=== PATIENT | male | born 1955 | race Caucasian/White ===

== ENCOUNTER 2023-03-26 00:37 | Emergency (ER) | payer BC, SELFPAY ==
[2023-03-26] VITALS (10 sets, daily range): BP systolic 109–147; BP diastolic 66–94; BMI 34.7
--- NOTE | 2023-03-26 01:21 | ED.GENMED ---
History of Present Illness
<JOSE Allen - Last Filed: 03/26/23 01:37>
General
Chief Complaint: Alcohol Problem
Source: patient
Exam Limitations: none
Time Seen by Provider: 03/26/23 00:57
Nursing documentation reviewed up to this point in time: agreed with
Travel History
Have you had any contact with someone who has COVID-19?: Unable to Answer
Do you have any symptoms of coronavirus? Fever > 100 degrees, chills, cough, shortness of breath, sore throat, loss of taste or smell, muscle aches, or headache?: Unable to Answer
History of Present Illness
History of Present Illness:
Pt is a 68 yo male with PMH of CAD, HTN, HLD who presents today via [facility] after being found intoxicated on his lawn by his . Pt states that he and his were celebrating his upcoming trip to [place] so he took her out to dinner. They took an
Uber and drank 'a lot' of wine and bourbon at the restaurant. They took an Uber home and the pt states that he does not think he made it back inside his house. EMS reports that his then found him on the lawn and called 911. Pt denies being in
pain currently, SOB, abdominal pain, nausea, headache. Denies daily alcohol use, states he only drinks alcohol on special occasions. Denies drug or substance use. Pt does not remember falling down on his lawn. He has a small abrasion on his nose and
dirt/debris on his right side but does not appear to have any significant injuries.
Past History
<JOSE Allen - Last Filed: 03/26/23 01:37>
Past History
ED Past Medical History: CAD, HTN and Hypercholesterolemia
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
Social History
Tobacco: Former smoker
Alcohol: None
Personal:
Living: with family
Family History
Family History: Unable to obtain
Review of Systems
<JOSE Allen - Last Filed: 03/26/23 01:37>
Review of Systems
Allergies reviewed?: Yes
Other source history: ambulance crew
All Other Systems: ROS reviewed and negative except as documented in HPI and ROS
Phy Exam
<JOSE Allen - Last Filed: 03/26/23 01:37>
General Physical Exam
General Presentation: no apparent distress
General Skin: dry and cool
General Mental: appears intoxicated
ENT Exam
ENT Exam: neck supple, normocephalic and swallowing well
Eye Exam
Eye Exam: PERRL and conjunctiva normal
Cardiovascular Exam
Cardiovascular Exam: regular rate/rhythm, no edema, no murmur and normal peripheral pulses
Pulmonary Exam
Pulmonary Exam: lungs clear, no respiratory distress, no rales, no crackles, no rhonchi, no wheezing and no cough
Gastrointestinal Exam
Gastrointestinal Exam: normal bowel sounds, non tender, soft and non distended
Neurological Exam
Neurological Exam: appears intoxicated and slurred speech
<Molly Chopra DO - Last Filed: 03/26/23 06:27>
Withdrawal Assessment of Alcohol
Withdrawal Assessment Completed?: Not applicable
Course
<JOSE Allen - Last Filed: 03/26/23 01:37>
Orders/Labs/Results
Orders:
Orders
03/26/23 01:07
CT Head W/o Iv Contrast Urgent
Comment:
Reason For Exam: change in MS, ETOH use, fall
Urine Drug Abuse Screen Urgent
03/26/23 01:08
Cardiac Monitoring- Treatment ONCE
03/26/23 01:09
Electrocardiogram (*1) Urgent
Reason for Study: Syncope
EKG- Treatment ONCE
03/26/23 07:00
Alcohol Urgent
Complete Blood Count/With Diff Urgent
Comprehensive Metabolic Panel Urgent
Vital Signs
Initial and Last Documented VS:
Initial Vital Signs
Temp Pulse Resp Pulse Ox
97.8 F 79 15 97
03/26/23 00:45 03/26/23 00:45 03/26/23 00:45 03/26/23 00:45
Last Documented Vital Signs
Temp Pulse Resp BP Pulse Ox
97.8 F 85 18 130/76 95
03/26/23 00:45 03/26/23 05:30 03/26/23 05:30 03/26/23 05:00 03/26/23 01:00
<Molly Chopra, DO - Last Filed: 03/26/23 06:27>
Orders/Labs/Results
Orders:
Orders
03/26/23 01:07
CT Head W/o Iv Contrast Urgent
Comment:
Reason For Exam: change in MS, ETOH use, fall
Urine Drug Abuse Screen Urgent
03/26/23 01:08
Cardiac Monitoring- Treatment ONCE
03/26/23 01:09
Electrocardiogram (*1) Urgent
Reason for Study: Syncope
EKG- Treatment ONCE
03/26/23 07:00
Alcohol Urgent
Complete Blood Count/With Diff Urgent
Comprehensive Metabolic Panel Urgent
Vital Signs
Initial and Last Documented VS:
Initial Vital Signs
Temp Pulse Resp Pulse Ox
97.8 F 79 15 97
03/26/23 00:45 03/26/23 00:45 03/26/23 00:45 03/26/23 00:45
Last Documented Vital Signs
Temp Pulse Resp BP Pulse Ox
97.8 F 85 18 130/76 95
03/26/23 00:45 03/26/23 05:30 03/26/23 05:30 03/26/23 05:00 03/26/23 01:00
<Molly Chopra DO - Last Filed: 03/26/23 06:27>
*Pulse Oximetry
Patient hypoxic: no
*Critical Care Note
Total Time (30-74mins, 75-104mins- exclusive of procedures): Not Applicable
ED Attending Note
<JOSE Allen - Last Filed: 03/26/23 01:37>
-
Portions of this chart may have been created with voice recognition software.� Occasional wrong word or��sound alike� substitutions may have occurred due to the inherent limitations of voice recognition software.
<Molly Chopra DO - Last Filed: 03/26/23 06:27>
ED Attending Note
Patient seen and examined by attending physician: Yes
I performed the substantive portion of visit, reviewed & personally made and approve the management plan that is documented in note by myself or JAI.: Yes
I performed a history and physical exam of patient and discussed management with resident, I reviewed resident's note and agree with documented findings and plan of care.: Yes
ED Attending Note:
This is a 68-year-old gentleman who resides at home with his . He has history of CAD, hypertension, hyperlipidemia. He was out with his celebrating tonight and admits to moderate alcohol consumption consisting of wine as well as bourbon.
He and his Ubered home. He has vague recollection of the Uber ride home but does not recall getting out of the car. He apparently stumbled and fell onto his front lawn, passed out and his was unable to arouse him or get him up thus 911
was called and he was brought to the ED via EMS.
He does recall EMS arrival and remains apologetic admits to drinking too much which is a rare occurrence for him. He reports rare/occasional alcohol consumption. He adamantly denies drug use.
He denies headache, denies neck nor back pain, denies nausea nor vomiting, denies chest pain, denies dizziness nor lightheadedness.
He is persistently adamantly refusing blood work nor radiologic studies including CT of the head. He is requesting to go home. He takes no anticoagulants.
His only daily medications include amlodipine, carvedilol, atorvastatin, irbesartan, sildenafil.
68-year-old gentleman appears his stated age, awake, mildly drowsy, appears moderately intoxicated. He is answering questions appropriately and following simple commands. He is repeatedly apologetic.
HEENT: Superficial abrasion to the bridge as well as distal edge of the nose. There is no epistaxis, no septal hematoma nor blood within nasal cavities. There is no palpable nasal pain and no deformity. Posterior pharynx is clear. Pupils are 5
mm equal and reactive to light. Mild nystagmus with lateral gaze bilaterally. Patient has difficulty tracking my finger movement with his eyes but is able to do so with frequent verbal cueing.
Neck: Nontender, supple, full range of motion without difficulty nor pain.
Heart is regular rate and rhythm.
Lungs are clear to auscultation, respirations are easy nonlabored.
Abdomen is rotund, soft, nondistended, nontender.
Extremities without clubbing or cyanosis nor edema. Peripheral pulses are full and equal. Nontender. Full range of motion without difficulty nor pain.
Neuro: Awake, mildly drowsy, appears moderately intoxicated. Motor strength is 5/5 bilaterally. Gross sensation is intact. No focal neurodeficits.
Skin is warm and dry, normal color. Good turgor. Superficial abrasions to nose as above.
I highly suspect alcohol intoxication as cause for trip and fall and patient noted to have superficial abrasion to his nose. Although prior records note Coumadin and medications this was 2010, prescribed after knee replacement surgery for DVT
prophylaxis and has since been discontinued.
Due to significant intoxication and nasal abrasion I do have some concern for potential intracranial injury and I recommended CT of the head for completeness sake; however patient continues to decline.
He remains hemodynamically stable. Monitor shows normal sinus rhythm without ectopy.
He continues to decline laboratory studies as well.
Will continue to observe in the ED. According to nursing staff, is on her way to the hospital.
03/26/2023 0620 AM
Patient is now awake and alert, has ambulated to and from the bathroom with steady unaided gait.
Easily conversant, remains apologetic. He denies headache, denies facial pain, no neck nor back pain.
He is eager to be discharged to home.
We had been unsuccessful in contacting his ; patient himself has been unable to contact her as well.
He plans to secure an Uber ride home.
Encouraged to avoid any further alcohol intake and otherwise stay well-hydrated on a daily basis.
Recommend Neosporin or bacitracin ointment to nasal abrasions.
Follow-up with PCP for recheck.
Discharge Plan
Departure
Patient Disposition: Home (Routine Discharge)
Date of Disposition: 03/26/23
Time of Disposition: 06:21
Patient with high blood pressure during this ER visit?: No
Condition: Good
Discharge Problem:
Acute alcohol intoxication, Abrasion of nose
Instructions: Skin Abrasions (DC), Alcohol Poisoning (DC)
Prescriptions:
No Action
celecoxib [Celebrex] 200 MG capsule
200 mg PO DAILY
carvedilol 12.5 MG tablet
25 mg PO BID
isosorbide mononitrate 30 MG tablet extended release 24 hr
30 mg PO DAILY
simvastatin 40 MG tablet
40 mg PO DAILY
amlodipine 10 MG tablet
10 mg PO DAILY
trazodone 150 MG tablet
150 mg PO HS
oxycodone [OxyContin] 10 MG tablet extended release 12 hr
10 mg PO Q12H
gabapentin 100 MG capsule
200 mg PO Q8H
clonazepam [Klonopin] 0.5 MG tablet,disintegrating
0.5 mg PO HS
olmesartan-hydrochlorothiazide [Benicar HCT] 40 MG/25 MG tablet
1 tab PO DAILY
aliskiren [Tekturna] 300 MG tablet
300 mg PO DAILY
Warfarin Sodium
PO . DIRECTED
Referrals:
Neftaly Rico MD [Family Provider] - Call in 1-3 days for appt
Interventions
Interventions:
*Risk Screen - Suicide Last Done: 03/26/23 00:45
*General Assessment Last Done: 03/26/23 00:45
*Neglect/Abuse Screening Last Done: 03/26/23 00:45
ED- Fall Risk Assessment Last Done: 03/26/23 01:00
*ED COVID-19 Vaccine History Last Done: 03/26/23 01:00
ED- Neurological Assessment Last Done: 03/26/23 01:00
ED-Psychological Assessment Last Done: 03/26/23 01:00
== END 2023-03-26 06:55 | disposition home or self-care (01) ==
LOC: EMR 00:37
PROVIDERS: EMERGENCY PHYSICIAN Emergency Medicine; FAMILY PHYSICIAN Family Medicine
DX: F10.129 Alcohol abuse with intoxication, unspecified (principal); S00.31XA Abrasion of nose, initial encounter; W19.XXXA Unspecified fall, initial encounter; I25.10 Atherosclerotic heart disease of native coronary artery without angina pectoris; I10 Essential (primary) hypertension; E78.00 Pure hypercholesterolemia, unspecified; Z87.891 Personal history of nicotine dependence; Z95.5 Presence of coronary angioplasty implant and graft
CPT/HCPCS: 99282

== ENCOUNTER → 2023-09-10 06:37 | Day surgery (SDC) | payer BC, SELFPAY | LOC: GI 06:37 | PROVIDERS: ATTENDING PHYSICIAN Internal Medicine Gastroenterology; FAMILY PHYSICIAN Family Medicine | DX: Z12.11 Encounter for screening for malignant neoplasm of colon (principal); Z86.010 Personal history of colon polyps; K64.8 Other hemorrhoids; K57.30 Diverticulosis of large intestine without perforation or abscess without bleeding; K63.5 Polyp of colon; D12.3 Benign neoplasm of transverse colon | CPT/HCPCS: 45385; 45380; 88305 ==